=== PATIENT | female | born 1980 | race Caucasian/White ===

== ENCOUNTER 2021-02-03 12:50 | Outpatient (CLI) | payer OTHER ==
[~2021-02-03 12:50] MED LIST: IBU600 MG PO; MIRAPEX1 MG PO; NORCO 5-325 TA1 EACH PO; PRENATAL ONE T1 EACH PO; SYNTHROID200 MCG PO; SYNTHROID25 MCG PO
[2021-02-03 13:36] LABS: HEMOGLOBIN 12.3 gm/dl (12.3-15.3); RED BLOOD COUNT 4.37 M/UL (4.00-5.10); WHITE BLOOD COUNT 10.1 K/UL (4.5-11.0)
== END 2021-02-03 14:18 | disposition home or self-care (01) ==
LOC: GENOP 12:50
PROVIDERS: Obstetrics & Gynecology
DX: Z01.812 Encounter for preprocedural laboratory examination (principal); O34.219 Maternal care for unspecified type scar from previous cesarean delivery
CPT/HCPCS: 36415; 81001; 85025

== ENCOUNTER 2021-02-05 06:33 | Inpatient (IN) | payer OTHER ==
[~2021-02-05] VITALS: Ht 162.6 cm; Wt 119.7 kg
[2021-02-05] MEDS ORDERED: PRAMIPEXOLE DIHY1 MG PO (07:20)
[2021-02-05] MEDS ORDERED: OMEPRAZOLE40 MG PO (07:21)
[2021-02-05] MEDS ORDERED: DIABETA 2.5 MG2.5 MG PO (07:21)
[2021-02-05] MEDS ORDERED: PRENATAL VITAM1 EAC3 PO (07:22)
[2021-02-05] MEDS ORDERED: ASPIRIN EC81 MG PO (07:23)
[2021-02-05] MEDS ORDERED: METFORMIN HCL1000 MG PO (07:23)
[2021-02-05 07:30] LABS: BUN/CREATININE RATIO 25 (0-10)
[2021-02-05] MEDS ORDERED: COLACE 100MG C100 MG PO (13:49)
[2021-02-05] MEDS ORDERED: HYDROCODON-ACE1 EAC4 PO (13:49)
[2021-02-05] MEDS ORDERED: IBUPROFEN800 MG PO (13:49)
[2021-02-05] MEDS ORDERED: FERREX 150 FOR1 EAC1 PO (13:49)
[2021-02-06 05:24] LABS: HEMOGLOBIN 9.7 gm/dl (12.3-15.3)
== END 2021-02-06 15:31 | disposition home or self-care (01) | DRG 788 ==
LOC: OB 06:33
PROVIDERS: ADMIT Obstetrics & Gynecology
PROC: 10D00Z1 Extraction of Products of Conception, Low, Open Approach (ICD-10-PCS; 2021-02-05)
PROC: 4A1HXCZ Monitoring of Products of Conception, Cardiac Rate, External Approach (ICD-10-PCS; principal; 2021-02-05 09:15)
DX: O24.420 Gestational diabetes mellitus in childbirth, diet controlled (principal); Z3A.37 37 weeks gestation of pregnancy; Z37.0 Single live birth; O99.214 Obesity complicating childbirth; E66.9 Obesity, unspecified; Z20.822 Contact with and (suspected) exposure to COVID-19; O99.284 Endocrine, nutritional and metabolic diseases complicating childbirth; O99.62 Diseases of the digestive system complicating childbirth; K21.9 Gastro-esophageal reflux disease without esophagitis; Z83.3 Family history of diabetes mellitus; Z82.49 Family history of ischemic heart disease and other diseases of the circulatory system; Z88.1 Allergy status to other antibiotic agents
CPT/HCPCS: 36415; 80048; 81001; 85014; 85018; 85025; 90715; C9113; J0690; J1885; J2274; J2370; J2405; J2590; J2795; J3010; J7030; J7120

== ENCOUNTER → 2022-05-27 | Outpatient (CLI) | payer OTHER ==
[~2022-05-27] MED LIST changes: +ASPIRIN EC81 MG PO; +COLACE 100MG C100 MG PO; +DIABETA 2.5 MG2.5 MG PO; +FERREX 150 FOR1 EAC1 PO; +HYDROCODON-ACE1 EAC4 PO; +HYDROCODON-ACE1 EAC6 PO; +IBUPROFEN600 MG PO; +IBUPROFEN800 MG PO; +METFORMIN HCL1000 MG PO; +OMEPRAZOLE40 MG PO; +PRAMIPEXOLE DIHY1 MG PO; +PRENATAL VITAM1 EAC3 PO
[2022-05-27 15:23] LABS: HEMOGLOBIN 12.6 gm/dl (12.3-15.3); RED BLOOD COUNT 4.15 M/UL (4.00-5.10)
== END ==
LOC: GENOP 13:35
PROVIDERS: Obstetrics & Gynecology
DX: Z01.812 Encounter for preprocedural laboratory examination (principal)
CPT/HCPCS: 81001; 85025

== ENCOUNTER 2022-05-28 05:35 | Inpatient (IN) | payer OTHER ==
[~2022-05-28] VITALS: Ht 162.6 cm; Wt 130.2 kg
[~2022-05-28 05:35] MED LIST changes: -HYDROCODON-ACE1 EAC6 PO; -IBUPROFEN600 MG PO
[2022-05-28] MEDS ORDERED: SYNTHROID200 MCG PO (06:20)
[2022-05-28] MEDS ORDERED: HYDROCODON-ACE1 EAC6 PO (07:58)
[2022-05-28] MEDS ORDERED: COLACE 100MG C100 MG PO (07:58)
[2022-05-28] MEDS ORDERED: IBUPROFEN600 MG PO (07:58)
== END 2022-05-30 17:29 | disposition home or self-care (01) | DRG 787 ==
LOC: OB 05:35
PROVIDERS: ADMIT Obstetrics & Gynecology
PROC: 4A1HXCZ Monitoring of Products of Conception, Cardiac Rate, External Approach (ICD-10-PCS; 2022-05-28)
PROC: 10D00Z1 Extraction of Products of Conception, Low, Open Approach (ICD-10-PCS; principal; 2022-05-28 07:30)
DX: O34.211 Maternal care for low transverse scar from previous cesarean delivery (principal); D68.9 Coagulation defect, unspecified; O99.12 Other diseases of the blood and blood-forming organs and certain disorders involving the immune mechanism complicating childbirth; Z3A.37 37 weeks gestation of pregnancy; Z20.822 Contact with and (suspected) exposure to COVID-19; Z28.310 Unvaccinated for COVID-19; Z37.0 Single live birth; O99.284 Endocrine, nutritional and metabolic diseases complicating childbirth; O99.334 Smoking (tobacco) complicating childbirth; F17.210 Nicotine dependence, cigarettes, uncomplicated; O69.81X0 Labor and delivery complicated by cord around neck, without compression, not applicable or unspecified; O34.03 Maternal care for unspecified congenital malformation of uterus, third trimester; Q51.818 Other congenital malformations of uterus; E03.9 Hypothyroidism, unspecified; O24.425 Gestational diabetes mellitus in childbirth, controlled by oral hypoglycemic drugs; Z90.49 Acquired absence of other specified parts of digestive tract; Z88.1 Allergy status to other antibiotic agents; Z83.3 Family history of diabetes mellitus; Z82.49 Family history of ischemic heart disease and other diseases of the circulatory system; Z82.5 Family history of asthma and other chronic lower respiratory diseases
CPT/HCPCS: 82800; 82962; 85014; 85018; C9113; J0690; J1650; J2210; J2274; J2370; J2405; J2590; J3010

== ENCOUNTER → 2022-06-11 | Outpatient (CLI) | payer OTHER ==
[~2022-06-11] MED LIST changes: +HYDROCODON-ACE1 EAC6 PO; +IBUPROFEN600 MG PO
== END ==
LOC: KOH-I 14:30
DX: R60.9 Edema, unspecified (principal)
CPT/HCPCS: 93970